=== PATIENT | female | born 1950 | race Caucasian/White ===

== ENCOUNTER 2023-05-14 06:55 | Day surgery (SDC) | payer MEDICARE, OTHER ==
[~2023-05-14] VITALS: Ht 160 cm; Wt 70.3 kg
[2023-05-14] VITALS (8 sets, daily range): BP systolic 124–168; BP diastolic 61–80; PULSE 55–76; RESP 12–19; O2SAT 93–96
[~2023-05-14 06:55] MED LIST: ASPI-543 PO; ATOR10TA PO; CARV3.1240 PO; CELE200C PO; CHOL20007 PO; ESCI20TA PO; LEV50T PO; LOSA50TA46 PO; LUTE15CA PO; MAGN1TAB29 PO; MISC1CAP7 PO; OMEG1400 PO; SACC1CAP3 PO
[2023-05-14] MEDS ORDERED: IODIXANOL 320MG/ML 100ML BTL IV ONE ×2 (07:48)
[2023-05-14] MEDS ORDERED: LIDOCAINE 2%HCL (LOCAL ANESTH.) INJ 20ML MDV ONE (07:48)
[2023-05-14] MEDS ORDERED: HEPARIN IN NS 1000Units/500mL 1,500 ML ONE (07:48)
[2023-05-14] MEDS ORDERED: VERAPAMIL 2.5MG/ML INJ 2ML VIAL IV ONE (08:23)
[2023-05-14] MEDS ORDERED: HEPARIN SODIUM (PORCINE) 5000 UNITS/ML 1ML VIAL ONE (08:23)
[2023-05-14] MEDS ORDERED: ANGIOMAX 250 MG VIAL IV ONE (08:23)
[2023-05-14] MEDS ORDERED: SODIUM CHL 0.9% 50 ML ONE ×2 (08:24→08:28)
[2023-05-14] MEDS ORDERED: fentaNYL CITRATE 100 MCG/2 ML VL ONE (08:24)
[2023-05-14] MEDS ORDERED: MIDAZOLAM HCL 2MG/2ML 2ml VIAL (1mg/ml) ONE (08:24)
[2023-05-14] MEDS ORDERED: hydrALAZINE HCL 20 MG/ML VL ONE (09:30)
[2023-05-14] MEDS ORDERED: TICAGRELOR 90 MG TAB ONE (09:39)
[2023-05-14] MEDS ORDERED: ASPirin 325 MG TAB ONE (09:40)
== END 2023-05-14 13:12 | disposition home or self-care (01) ==
LOC: CATH 06:55
PROVIDERS: ATTEND Internal Medicine Cardiovascular Disease
DX: I25.10 Atherosclerotic heart disease of native coronary artery without angina pectoris (principal); R94.39 Abnormal result of other cardiovascular function study; E03.9 Hypothyroidism, unspecified; Z85.3 Personal history of malignant neoplasm of breast; I10 Essential (primary) hypertension; F32.9 Major depressive disorder, single episode, unspecified; G89.4 Chronic pain syndrome; Z79.899 Other long term (current) drug therapy
CPT/HCPCS: 93458; C1725; C1769; C1874; C1894; C9600; J0360; J0583; J1644; J2250; J3010; Q9967; 99152; 99153